=== PATIENT | female | born 1995 | race Caucasian/White ===

== ENCOUNTER 2017-06-18 20:07 | Emergency (ER) | payer MEDICAID ==
[~2017-06-18] VITALS: Ht 160 cm; Wt 57.0 kg
[~2017-06-18 20:07] MED LIST: ALBU.5I NEB; ALBU8I INH; NEBUKIT4; PRED20 PO; PRENCAP6 PO; VENTAER INH
[2017-06-18 20:09] VITALS: BP 134/83; PULSE 85; RESP 16; TEMP 99.3; O2SAT 97
[2017-06-18] MEDS ORDERED: PRED-503 PO (20:54)
[2017-06-18] MEDS ORDERED: ALBU6.7H INH (20:54)
[2017-06-18] MEDS: RESP: ALBUTEROL 2.5 MG/IPRATROPIUM 0.5 MG NEB (SCH) INH (20:57)
--- NOTE | 2017-06-18 20:59 | PD ---
HPI Chief Complaint: Cold / Flu Symptoms Time Seen by Provider: 20:55 Travel History International Travel<30 days: No Contact w/Intl Traveler<30days: No Traveled to known affect area: No History of Present Illness HPI 21-year-old white female presents to emergency Department with complaints of shortness of breath and wheezing. She's been sick now for the past 2-3 days. She has been using her albuterol nebulizer without relief. She does continue to smoke cigarettes. She admits to some runny nose, congestion, ear pain as well. No fever chills. No sputum production. No nausea vomiting. No abdominal pain, diarrhea or abdominal pain. Symptoms are moderate. Worse with activity. No alleviating factors. History of pneumonia in the past as well as asthma. [facility] Past Medical History Narrative Medical Asthma, pneumonia Asthma: Yes Respiratory: Yes Immunizations Current: Yes Tetanus Vaccination: Unknown Influenza Vaccination: No ?: Unknown LMP: now Past Surgical History Surgical History: No Previous Surgery Social History Alcohol Use: Yes Tobacco Use: Yes Substance Use: No Allergies-Medications (Allergen,Severity, Reaction): Coded Allergies: Red Dyes - Various (Verified Allergy, Severe, Rash, 06/18/17) Reported Meds & Prescriptions Reported Meds & Active Scripts Active Proventil Hfa 6.7 GM Inh (Albuterol Sulfate) 90 Mcg/Act Aer 2 Puff INH Q4-6H PRN Deltasone (Prednisone) 20 Mg Tab 20 Mg PO TID Review of Systems Except as stated in HPI: all other systems reviewed are Neg Physical Exam Narrative GENERAL: Well-developed, well-nourished in mild respiratory distress. Nontoxic appearing. HEAD: Normocephalic, atraumatic. EYES: Pupils equal round and reactive. Extraocular motions intact. No scleral icterus. No injection or drainage. ENT: TMs clear without erythema. The external auditory canals clear. Nose: clear . Posterior pharynx is pink and moist. No tonsillar edema or exudate. Uvula midline. Airway patent. NECK: Trachea midline.Supple, nontender, moves head freely. No central bony tenderness or spasm. CARDIOVASCULAR: Regular tachycardic rate and rhythm without murmurs, gallops, or rubs. RESPIRATORY: Mild respiratory distress with inspiratory and x-ray wheezes. Mild tachypnea. No Rales. No rhonchi.. GASTROINTESTINAL: Abdomen soft, non-tender, nondistended. No hepato-splenomegaly , or palpable masses. No guarding. EXTREMITIES: No clubbing, cyanosis, or edema. No joint tenderness, effusion, or edema noted. BACK: Nontender without deformity or crepitance. No flank tenderness. Data Data Last Documented VS Vital Signs Date Time Temp Pulse Resp B/P Pulse Ox O2 Delivery O2 Flow Rate FiO2 06/18/17 20:09 99.3 85 16 134/83 97 Room Air Orders Prednisone (Deltasone) (06/18/17 21:00) Albuterol-Ipratropium Neb (Duoneb Neb) (06/18/17 21:00) MDM Medical Decision Making Medical Screen Exam Complete: Yes Emergency Medical Condition: Yes Medical Record Reviewed: Yes Differential Diagnosis MDM: High Differential diagnoses: Pneumonia, bronchitis, URI, asthma, RAD, legionnaire's disease, SARS, ARDS, influenza, bronchiolitis, RSV,PE,CHF Narrative Course Patient is given prednisone 60 mg by mouth and 2 DuoNeb times. Patient is reexamined and feeling much improved. This is acute asthma exacerbation, dyspnea Diagnosis Primary Impression: Asthma exacerbation Additional Impression: Dyspnea and respiratory abnormalities Patient Instructions: General Instructions Additional Instructions: Rest. Increase fluids. Tylenol and Advil. Keonitussin-DM. Continue to use her albuterol nebulizer at home as well, prednisone, and albuterol. Followup with your Dr. in one week. Return to the ER for any problems. Med/Other Pt SpecificInfo: Prescription(s) given Scripts Albuterol 6.7 GM Inh (Proventil Hfa 6.7 GM Inh)90 Mcg/Act Aer2 Puff INH Q4-6H PRN (SHORTNESS OF BREATH) #1 INHALER Prov:Zac Hollins MD 06/18/17 Prednisone (Deltasone)20 Mg Tab20 Mg PO TID #15 TAB Prov:Zac Hollins MD 06/18/17 Disposition: 01 DISCHARGE HOME Condition: Stable Javier Reyes Jun 18, 2017 20:59
[2017-06-18] MEDS ORDERED: predniSONE 20 MG TAB PO ONE (21:00)
== END 2017-06-18 21:46 | disposition home or self-care (01) ==
LOC: NEPK 20:07
DX: J45.901 Unspecified asthma with (acute) exacerbation (principal); R06.00 Dyspnea, unspecified; H92.09 Otalgia, unspecified ear; Z72.0 Tobacco use; Z87.09 Personal history of other diseases of the respiratory system
CPT/HCPCS: 94640; 94664; 99284; J7512